=== PATIENT | female | born 1960 | race Caucasian/White ===

== ENCOUNTER 2024-03-08 05:26 | Day surgery (SDC) | payer BC ==
[2024-03-08] MEDS ORDERED: fentaNYL 100 MCG/2 ML SDV IV ONE (05:27)
[2024-03-08] MEDS ORDERED: Midazolam 1 MG/ML 2 ML SDV IV ONE (05:27)
[2024-03-08] MEDS: Dextrose 5%-0.45% NaCl 1,000 ML IV SCH (06:06)
[2024-03-08] MEDS ORDERED: Midazolam 1 MG/ML 2 ML SDV ONE (06:16)
[2024-03-08] MEDS ORDERED: fentaNYL 100 MCG/2 ML SDV ONE (06:16)
[2024-03-08] MEDS: fentaNYL 100 MCG/2 ML SDV IV ONE ×2 (06:25→06:26)
[2024-03-08] MEDS: Midazolam 1 MG/ML 2 ML SDV IV ONE ×5 (06:26→06:42)
== END 2024-03-08 09:20 | disposition home or self-care (01) ==
LOC: DL.ENDO 05:26
PROVIDERS: ATTEND Internal Medicine Gastroenterology
DX: Z12.11 Encounter for screening for malignant neoplasm of colon (principal); D12.0 Benign neoplasm of cecum; D12.4 Benign neoplasm of descending colon; D12.5 Benign neoplasm of sigmoid colon; D12.3 Benign neoplasm of transverse colon; D12.8 Benign neoplasm of rectum; K64.8 Other hemorrhoids; K57.30 Diverticulosis of large intestine without perforation or abscess without bleeding; I10 Essential (primary) hypertension; E78.00 Pure hypercholesterolemia, unspecified; I25.10 Atherosclerotic heart disease of native coronary artery without angina pectoris; Z95.5 Presence of coronary angioplasty implant and graft
CPT/HCPCS: J2250; J3010; J7042